=== PATIENT | female | born 2000 | race African-American/Black ===

== ENCOUNTER 2019-03-21 11:21 | Emergency (ER) | payer OTHER ==
[~2019-03-21] VITALS: Ht 160 cm; Wt 61.7 kg
== END 2019-03-21 12:39 | disposition home or self-care (01) ==
LOC: ER 11:21
DX: S09.8XXA Other specified injuries of head, initial encounter (principal); H72.91 Unspecified perforation of tympanic membrane, right ear; W21.05XA Struck by basketball, initial encounter; Y92.89 Other specified places as the place of occurrence of the external cause; Y93.89 Activity, other specified; Y99.8 Other external cause status

== ENCOUNTER 2021-03-19 22:41 | Emergency (ER) | payer OTHER ==
[~2021-03-19] VITALS: Ht 160 cm; Wt 59.0 kg
[2021-03-19 22:45] VITALS: BP 134/72
--- NOTE | 2021-03-20 07:06 | EKG ---
[address] [address] ELECTROCARDIOGRAM REPORT Name: George KING Room #: [facility]#: [id number] Admission: 03/19/21 Attend Phys: Discharge: 03/19/21 Date of : 89 Report #: [id number] [facility] ED Test Date: 2021-03-19 Test Time: 22:46:20 Pat Name: George KING Department: Room: Gender: F [employer]: JAKY : 2000 Requested By: Erika King Order Number: [id number] MD: Abhijeet Sandra Measurements Intervals [place] Rate: 105 P: 92 DE: 132 QRS: 81 QRSD: 76 T: 40 QT: 314 QTc: 416 Interpretive Statements Sinus tachycardia No previous ECG available for comparison Electronically Signed On 03-20-2021 7:05:55 CDT by Abhijeet Sandra [email or web address] <ELECTRONICALLY SIGNED> By: Abhijeet Sandra MD, [facility] 03/20/21 0705 [id number] Abhijeet Sandra MD, FACC /EPI
== END 2021-03-19 23:40 | disposition home or self-care (01) ==
LOC: ER 22:41
DX: J06.9 Acute upper respiratory infection, unspecified (principal)

== ENCOUNTER 2021-05-21 13:45 | Emergency (ER) | payer OTHER ==
[~2021-05-21] VITALS: Ht 160 cm; Wt 59.0 kg
[2021-05-21 14:20] LABS: URINE BILIRUBIN NEGATIVE (Negative); URINE BLOOD TRACE (Negative); URINE CLARITY CLEAR; URINE COLOR YELLOW; URINE GLUCOSE-RANDOM* NEGATIVE (Negative); URINE KETONES TRACE (Negative); URINE LEUKOCYTES-REFLEX NEGATIVE (Negative); URINE NITRITE-REFLEX NEGATIVE (Negative); URINE PROTEIN (DIPSTICK) NEGATIVE (Negative); URINE UROBILINOGEN 0.2 E.U./dl (0.2-1.0)
[2021-05-21 15:43] VITALS: BP 116/74
== END 2021-05-21 15:44 | disposition home or self-care (01) ==
LOC: ER 13:45
PROVIDERS: Emergency Medicine
DX: J06.9 Acute upper respiratory infection, unspecified (principal); Z20.822 Contact with and (suspected) exposure to COVID-19

== ENCOUNTER 2021-08-13 14:33 | Emergency (ER) | payer OTHER ==
[~2021-08-13] VITALS: Ht 160 cm; Wt 59.0 kg
[2021-08-13 14:47] LABS: URINE BILIRUBIN NEGATIVE (Negative); URINE BLOOD TRACE (Negative); URINE COLOR YELLOW; URINE GLUCOSE-RANDOM* NEGATIVE (Negative); URINE KETONES NEGATIVE (Negative); URINE LEUKOCYTES-REFLEX 1+ (Negative); URINE NITRITE-REFLEX NEGATIVE (Negative); URINE PROTEIN (DIPSTICK) NEGATIVE (Negative); URINE UROBILINOGEN 0.2 E.U./dl (0.2-1.0)
[2021-08-13 14:48] LABS: URINE CLARITY HAZY
[2021-08-13 14:59] LABS: BACTERIA-REFLEX >30 Many /HPF (None Seen); CASTS None Seen /LPF (None Seen); CRYSTALS None Seen /LPF (None Seen); SQUAMOUS >10 Many /LPF (0-3); URINE RBC 1-2 Rare /HPF (NONE SEEN); URINE WBC-REFLEX 6-15 Few /HPF (0-5)
[2021-08-13 15:29] LABS: ABSOLUTE NEUTROPHILS 3.6 thou/uL (1.4-8.2); BASOPHILS 1.3 % (0.0-2.0); EOSINOPHILS 1.3 % (0.0-3.0); HEMATOCRIT 34.9 % (37.0-47.0); HEMOGLOBIN 11.3 gm/dL (12.0-15.0); LYMPHOCYTES 29.1 % (24.0-44.0); MCH 29.1 pg (26.0-34.0); MCHC 32.4 g/dL (28.0-37.0); MCV 89.7 fL (80.0-100.0); PLATELET COUNT 239 thou/uL (150-400); POLYS 60.3 % (36.0-66.0); RBC 3.89 mil/uL (4.20-5.00); RDW 13.7 % (10.5-14.5)
[2021-08-13 15:38] LABS: CALCIUM 8.6 mg/dL (8.5-10.1); CREATININE 0.7 mg/dL (0.6-1.0); POTASSIUM 3.8 mmol/L (3.5-5.1)
[2021-08-13 15:50] LABS: ALBUMIN 3.4 g/dL (3.4-5.0); TOTAL BILIRUBIN 0.3 mg/dL (0.2-1.0); TOTAL PROTEIN 6.8 g/dL (6.4-8.2)
[2021-08-13 17:33] VITALS: BP 118/61
[2021-08-13] MEDS ORDERED: ZOFRAN ODT4 MG PO (17:38)
[2021-08-13] MEDS ORDERED: NORCO5 PO (17:38)
[2021-08-13] MEDS ORDERED: CEFDINIR300 MG PO (17:38)
== END 2021-08-13 17:41 | disposition home or self-care (01) ==
LOC: ER 14:33
PROVIDERS: Physician Assistant
DX: N39.0 Urinary tract infection, site not specified (principal); R11.0 Nausea; R10.84 Generalized abdominal pain

== ENCOUNTER 2021-08-16 22:37 | Emergency (ER) | payer OTHER ==
[~2021-08-16] VITALS: Ht 160 cm; Wt 59.0 kg
[~2021-08-16 22:37] MED LIST: CEFDINIR300 MG PO; NORCO5 PO; ZOFRAN ODT4 MG PO
[2021-08-16 23:35] LABS: URINE BILIRUBIN NEGATIVE (Negative); URINE BLOOD 1+ (Negative); URINE CLARITY CLEAR; URINE COLOR YELLOW; URINE GLUCOSE-RANDOM* NEGATIVE (Negative); URINE KETONES NEGATIVE (Negative); URINE LEUKOCYTES-REFLEX TRACE (Negative); URINE NITRITE-REFLEX NEGATIVE (Negative); URINE PROTEIN (DIPSTICK) NEGATIVE (Negative); URINE SPECIFIC GRAVITY 1.015 (1.005-1.035); URINE UROBILINOGEN 0.2 E.U./dl (0.2-1.0)
[2021-08-16 23:49] LABS: BACTERIA-REFLEX None Seen /HPF (None Seen); CASTS None Seen /LPF (None Seen); CRYSTALS None Seen /LPF (None Seen); MUCUS None Seen strn/LPF (None Seen); SQUAMOUS 0-3 Few /LPF (0-3); URINE RBC 3-10 Few /HPF (NONE SEEN); URINE WBC-REFLEX None Seen /HPF (0-5)
[2021-08-17] MEDS ORDERED: BACTRIM DS TAB1 EACH PO (00:05)
[2021-08-17 00:13] VITALS: BP 120/55
== END 2021-08-17 00:13 | disposition home or self-care (01) ==
LOC: ER 22:37
PROVIDERS: Emergency Medicine
DX: N93.8 Other specified abnormal uterine and vaginal bleeding (principal); R30.0 Dysuria